=== PATIENT | female | born 1960 | race African-American/Black ===

== ENCOUNTER 2022-04-23 13:45 | Emergency (ER) | payer MEDICAID, OTHER ==
[~2022-04-23] VITALS: Ht 162.6 cm; Wt 91.0 kg
[2022-04-23 13:56] VITALS: BP 178/91
== END 2022-04-23 15:56 | disposition home or self-care (01) ==
LOC: ER 13:45
DX: F32.9 Major depressive disorder, single episode, unspecified (principal)
CPT/HCPCS: 99282

== ENCOUNTER 2022-06-14 11:37 | Emergency (ER) | payer MEDICAID ==
[~2022-06-14] VITALS: Ht 170.2 cm; Wt 90.0 kg
[2022-06-14 11:43] VITALS: BP 112/74
[2022-06-14] MEDS ORDERED: IBUPROFEN 600MG TABLET PO STA (12:35)
[2022-06-14] MEDS ORDERED: IBUPROFEN 600MG TABLET PO NR (14:45)
[2022-06-14] MEDS ORDERED: NAPR-681 PO (15:28)
== END 2022-06-14 15:45 | disposition home or self-care (01) ==
LOC: ER 11:37
DX: M17.11 Unilateral primary osteoarthritis, right knee (principal); R51.9 Headache, unspecified
CPT/HCPCS: 73562; 99283

== ENCOUNTER 2023-01-11 13:03 | Emergency (ER) | payer MEDICAID ==
[~2023-01-11] VITALS: Ht 167.6 cm; Wt 93.0 kg
[~2023-01-11 13:03] MED LIST: NAPR-681 PO
[2023-01-11 13:09] VITALS: BP 136/86
[2023-01-11 15:22] LABS: CLARITY URINE TURBID (CLEAR); COLOR URINE YELLOW (YELLOW); KETONES URINE NEGATIVE (NEGATIVE); LEUKOCYTE ESTERASE URINE 3+ (NEGATIVE); NITRITE URINE NEGATIVE (NEGATIVE); OCCULT BLOOD URINE 3+ (NEGATIVE); PROTEIN URINE 1+ (NEGATIVE); SPECIFIC GRAVITY URINE 1.011 (1.005-1.030); UROBILINOGEN URINE 0.2 E.U./dL (0.2-1.0)
[2023-01-11] MEDS ORDERED: NITR-87 MT (15:57)
== END 2023-01-11 16:19 | disposition home or self-care (01) ==
LOC: ER 13:03
DX: N30.90 Cystitis, unspecified without hematuria (principal); Z90.710 Acquired absence of both cervix and uterus
CPT/HCPCS: 81003; 87186; 99283

== ENCOUNTER 2023-03-20 18:12 | Emergency (ER) | payer MEDICAID ==
[~2023-03-20] VITALS: Ht 170.2 cm; Wt 99.0 kg
[~2023-03-20 18:12] MED LIST changes: +NITR-87 MT
[2023-03-20 18:23] VITALS: BP 130/89
[2023-03-20 18:31] LABS: CLARITY URINE CLOUDY (CLEAR); COLOR URINE YELLOW (YELLOW); KETONES URINE NEGATIVE (NEGATIVE); LEUKOCYTE ESTERASE URINE 3+ (NEGATIVE); NITRITE URINE NEGATIVE (NEGATIVE); OCCULT BLOOD URINE 1+ (NEGATIVE); PROTEIN URINE TRACE (NEGATIVE); SPECIFIC GRAVITY URINE 1.022 (1.005-1.030)
[2023-03-20] MEDS ORDERED: CEPH500C2 MT (21:51)
== END 2023-03-20 22:00 | disposition home or self-care (01) ==
LOC: ER 18:12
DX: N39.0 Urinary tract infection, site not specified (principal); F41.9 Anxiety disorder, unspecified; F32.9 Major depressive disorder, single episode, unspecified; Z87.440 Personal history of urinary (tract) infections
CPT/HCPCS: 81003; 87077; 87186; 99283

== ENCOUNTER 2024-07-18 04:16 | Emergency (ER) | payer MEDICAID ==
[~2024-07-18] VITALS: Ht 177.8 cm; Wt 92.0 kg
[~2024-07-18 04:16] MED LIST changes: +CEPH500C2 MT
[2024-07-18 04:32] VITALS: O2SAT 99
[2024-07-18 06:00] VITALS: BP 115/62; PULSE 73; RESP 17; TEMP 36.83628; O2SAT 99
[2024-07-18] MEDS ORDERED: DIPH28.33 TP (06:17)
[2024-07-18] MEDS ORDERED: CETI10CA2 MT (06:17)
[2024-07-18] MEDS: CETIRIZINE 10MG TABLET PO SCH (06:20)
== END 2024-07-18 06:35 | disposition home or self-care (01) ==
LOC: ER 04:29
DX: R21 Rash and other nonspecific skin eruption (principal)
CPT/HCPCS: 99282